=== PATIENT | male | born 1960 | race Caucasian/White ===

== ENCOUNTER → 2017-01-21 | Outpatient (CLI) | payer MEDICAID ==
[~2017-01-21] MED LIST: ASPI-496 PO; CHOL2000 PO; DOXA8TAB63 PO; HYDR-882 PO; LANS30CA PO; LIDOCAINE 1%, 20ML ONE; LOSA1TAB16 PO; MONT10TA9 PO; ROPI0.5T2 PO; SODIUM BICARBONATE 4.2%, 5ML ONE; UBID100C24 PO
== END | disposition home or self-care (01) ==
LOC: RAD 13:50
PROVIDERS: ATTEND Physician Assistant
DX: E04.1 Nontoxic single thyroid nodule (principal)
CPT/HCPCS: 76942; 88173; J3490

== ENCOUNTER 2017-04-11 20:02 | Emergency (ER) | payer MEDICAID ==
[~2017-04-11] VITALS: Ht 175.3 cm; Wt 100.0 kg
[~2017-04-11 20:02] MED LIST changes: -LIDOCAINE 1%, 20ML ONE; -SODIUM BICARBONATE 4.2%, 5ML ONE
[2017-04-11] MEDS ORDERED: ALBU8.5H3 INH (20:20)
[2017-04-11] MEDS ORDERED: TRAZ100T15 PO (20:20)
[2017-04-11] MEDS ORDERED: FLUT1BLS PO (20:20)
[2017-04-11] MEDS ORDERED: SODIUM CHLORIDE FLUSH 10ML SYR IVF ONE (20:30)
[2017-04-11] MEDS ORDERED: SODIUM CHLORIDE 0.9% 1,000ML IVBOLUS ONE ×2 (20:30→21:30)
[2017-04-11 20:44] LABS: ASPARTATE AMINO TRANSFERASE 14 U/L (15-37); BLOOD UREA NITROGEN 22 mg/dL (7-18)
[2017-04-11] MEDS ORDERED: POTASSIUM CHLORIDE 20 MEQ TAB.ER.PRT PO ONE ×2 (21:30→23:30)
[2017-04-11] MEDS ORDERED: PLEASE ENTER ALLERGIES MC SCH ×2 (21:30)
[2017-04-11] MEDS ORDERED: POTASSIUM CHLORIDE 20 MEQ in SODIUM CHLORIDE 0.9% 250 ML IV ONE (21:30)
[2017-04-11] MEDS ORDERED: POTASSIUM CHLORIDE 20 MEQ TAB.ER.PRT ONE (22:14)
[2017-04-11 23:58] VITALS: BP 114/62
== END 2017-04-12 00:03 | disposition home or self-care (01) ==
LOC: ED 23:25
DX: E87.6 Hypokalemia (principal); N17.9 Acute kidney failure, unspecified; I10 Essential (primary) hypertension
CPT/HCPCS: 36415; 71010; 80053; 85025; 93005; 96361; 96365; 96366; 99285; J3480; J7030; J7050

== ENCOUNTER → 2017-05-14 | Outpatient (CLI) | payer MEDICAID ==
[~2017-05-14] MED LIST changes: +ALBU8.5H3 INH; +FLUT1BLS PO; +TRAZ100T15 PO
== END | disposition home or self-care (01) ==
LOC: CFH 08:37
PROVIDERS: ATTEND Physician Assistant
DX: I11.0 Hypertensive heart disease with heart failure (principal); I50.9 Heart failure, unspecified; I37.1 Nonrheumatic pulmonary valve insufficiency
CPT/HCPCS: 93306